=== PATIENT | male | born 1965 | race Caucasian/White ===

== ENCOUNTER 2016-12-08 15:57 | Emergency (ER) | payer BC ==
[2016-12-08] MEDS ORDERED: AUGMENTIN PO (16:16)
[2016-12-08] MEDS ORDERED: FLOXIN10 M1 AD (16:16)
[2016-12-08] MEDS ORDERED: CHLOROTHIAZIDE250 MG PO (16:17)
== END 2016-12-08 16:59 | disposition home or self-care (01) ==
LOC: SED 15:57
DX: H60.91 Unspecified otitis externa, right ear (principal); I10 Essential (primary) hypertension; Z79.2 Long term (current) use of antibiotics; Z79.899 Other long term (current) drug therapy
CPT/HCPCS: 99282